=== PATIENT | male | born 1970 | race African-American/Black ===

== ENCOUNTER 2023-09-28 18:54 | Emergency (ER) | payer MEDICAID ==
[~2023-09-28] VITALS: Ht 177.8 cm; Wt 102.1 kg
[2023-09-28] MEDS ORDERED: KETOROLAC TROMETHAMINE INJ 30 MG/ML VIAL ONE (19:30)
[2023-09-28] MEDS ORDERED: BACLOFEN (10 MG) 10 MG TABLET ONE (19:31)
[2023-09-28] MEDS: BACLOFEN (10 MG) 10 MG TABLET PO ONE (19:33)
[2023-09-28] MEDS: KETOROLAC TROMETHAMINE INJ 60 MG/2 ML VIAL IM ONE (19:33)
[2023-09-28] MEDS ORDERED: BACL10TA PO (21:42)
[2023-09-28] MEDS ORDERED: KETO10TA2 PO (21:42)
[2023-09-28 21:54] VITALS: BP 140/76; TEMP 98.3; O2SAT 98
== END 2023-09-28 21:55 | disposition home or self-care (01) ==
LOC: ER 19:00
DX: S83.91XA Sprain of unspecified site of right knee, initial encounter (principal); S93.402A Sprain of unspecified ligament of left ankle, initial encounter; S39.012A Strain of muscle, fascia and tendon of lower back, initial encounter; M54.9 Dorsalgia, unspecified; Z88.8 Allergy status to other drugs, medicaments and biological substances; X50.1XXA Overexertion from prolonged static or awkward postures, initial encounter; Y93.89 Activity, other specified; Y92.89 Other specified places as the place of occurrence of the external cause; Y99.8 Other external cause status
CPT/HCPCS: 99284; 96372; 73610; 73564; J1885